=== PATIENT | male | born 2000 | race Caucasian/White ===

== ENCOUNTER 2021-02-21 11:14 | Emergency (ER) | payer MEDICAID ==
[~2021-02-21] VITALS: Ht 177.8 cm; Wt 127.0 kg
[2021-02-21 11:22] VITALS: BP_SYST 135
[2021-02-21] MEDS ORDERED: KETOROLAC TROMETHAMINE 30 MG VIAL IM ONE (11:45)
[2021-02-21] MEDS ORDERED: NAPR-1172 PO (12:38)
[2021-02-21 12:51] VITALS: BP_SYST 135
== END 2021-02-21 12:51 | disposition home or self-care (01) ==
LOC: SED 11:14
DX: S93.401A Sprain of unspecified ligament of right ankle, initial encounter (principal); S93.402A Sprain of unspecified ligament of left ankle, initial encounter; Z79.899 Other long term (current) drug therapy; X50.1XXA Overexertion from prolonged static or awkward postures, initial encounter; Y93.89 Activity, other specified; Y92.89 Other specified places as the place of occurrence of the external cause; Y99.8 Other external cause status
CPT/HCPCS: 73600; 96372; 99283; J1885